=== PATIENT | male | born 1970 | race Caucasian/White ===

== ENCOUNTER 2021-07-21 10:10 | Inpatient (IN) | payer MEDICAID, SELFPAY ==
[~2021-07-21] VITALS: Ht 172.7 cm; Wt 136.1 kg
--- NOTE | 2021-07-21 10:12 | NUR ---
Pt JOHNA BLS to bed 05.
[2021-07-21 10:13] VITALS: BP 175/140
--- NOTE | 2021-07-21 10:13 | NUR ---
PATIENT PROVIDED WITH URINE CUP AT BEDSIDE.
--- NOTE | 2021-07-21 10:44 | NUR ---
PATIENT AMBULATED TO RESTROOM TO PROVIDE URINE SAMPLE AT THIS TIME.
--- NOTE | 2021-07-21 11:31 | NUR ---
Toi sesay in [facility] - 07/21/21 at [email or web address] RODGERS AT BEDSIDE EVALUATING PT
--- NOTE | 2021-07-21 11:31 | NUR ---
DR. RODGERS EVALUATING PATIENT AT BEDSIDE.
[2021-07-21] MEDS ORDERED: KETOROLAC 30 MG/ML VIAL IVP ONE (11:35)
[2021-07-21] MEDS ORDERED: NACL 0.9% 1,000 ML IV ONE (11:35)
--- NOTE | 2021-07-21 11:40 | NUR ---
PATIENT TAKEN TO CT VIA WHEELCHAIR
--- NOTE | 2021-07-21 11:52 | NUR ---
PATIENT ESCORTED BACK TO ROOM FROM CT
[2021-07-21 12:05] LABS: BASOPHILS # (AUTO) 0.1 K/uL (0.00-0.22); BASOPHILS % (AUTO) 0.6 % (0.0-2.0); EOSINOPHILS # (AUTO) 0.1 K/uL (0-0.4); EOSINOPHILS % (AUTO) 0.6 % (0.0-4.0); HEMATOCRIT 44.7 % (36-52); HEMOGLOBIN 14.8 g/dL (12.0-18.0); LYMPHOCYTES # (AUTO) 1.8 K/uL (2.0-11.5); LYMPHOCYTES % (AUTO) 18.9 % (20.5-51.1); MEAN CORPUSCULAR HEMOGLOBIN 26 pg (27-31); MEAN CORPUSCULAR HGB CONC 33 g/dL (33-37); MEAN CORPUSCULAR VOLUME 78.8 fL (80-94); MONOCYTES # (AUTO) 0.4 K/uL (0.8-1.0); MONOCYTES % (AUTO) 4.5 % (1.7-9.3); NEUTROPHILS # (AUTO) 7.2 K/uL (1.8-7.7); NEUTROPHILS % (AUTO) 75.4 % (42.2-75.2); PLATELET COUNT (AUTO) 215 K/uL (140-450); RED BLOOD CELL COUNT(AUTO) 5.67 MIL/uL (4.20-6.10); RED CELL DISTRIBUTION WIDTH 15.1 % (11.6-13.7); WHITE BLOOD COUNT (AUTO) 9.5 K/uL (4.8-10.8)
[2021-07-21 12:17] LABS: ALBUMIN 3.4 g/dL (3.4-5.0); ANION GAP 10.4 (8-16); CARBON DIOXIDE 30.2 mmol/L (21-32); CREATININE 0.8 mg/dL (0.6-1.3); POTASSIUM 3.6 mmol/L (3.5-5.1); TOTAL BILIRUBIN 0.4 mg/dL (0.0-1.0)
--- NOTE | 2021-07-21 13:00 | NUR ---
PATIENT RESTING IN BED, RESPIRATIONS EVEN AND UNLABORED. SAFETY PRECAUTIONS CONTINUE IN PLACE, WILL CONTINUE TO MONITOR.
[2021-07-21] MEDS ORDERED: ONDANSETRON 4 MG/2 ML VIAL IVP ONE (14:20)
[2021-07-21] MEDS ORDERED: MORPHINE SULFATE 4 MG/ML SYR IVP ONE (14:20)
[2021-07-21] MEDS ORDERED: cefTRIAXone 1,000 MG VIAL ONE (14:24)
[2021-07-21 14:26] LABS: APPEARANCE,URINE CLEAR (CLEAR); BILIRUBIN,URINE 1+ (NEGATIVE); BLOOD, URINE 1+ (NEGATIVE); COLOR,URINE YELLOW (YELLOW); LEUKOCYTE ESTERASE ,URINE NEGATIVE (NEGATIVE); NITRITE, URINE NEGATIVE (NEGATIVE); UGLUCOSE 3+ (NEGATIVE)
[2021-07-21 14:55] LABS: CALCIUM OXALATE CRYSTALS,UR >100 /HPF (None Seen); RBC,URINE 0-5 /HPF (0-5); WBC,URINE 0-5 /HPF (0-5)
[2021-07-21] MEDS: VANCOMYCIN 1,500 MG in NACL 0.9% 500 ML IV SCH (17:15)
--- NOTE | 2021-07-21 18:14 | NUR ---
PATIENT PROVIDED W/ DINNER TRAY AT BEDSIDE. ALL PATIENT NEEDS MET AT THIS TIME. WILL CONTINUE TO MONITOR.
--- NOTE | 2021-07-21 18:29 | NUR ---
PATIENT ATE 100% OF DINNER TRAY AT THIS TIME.
--- NOTE | 2021-07-21 19:18 | NUR ---
The patient's care was reviewed and supervised by Latisha Lim RN.
--- NOTE | 2021-07-21 19:21 | NUR ---
Pt report given to DIANNA MOODY. Transfer of care at this time.
--- NOTE | 2021-07-21 21:41 | NUR ---
EMPTIED 200 ML OF URINE.
--- NOTE | 2021-07-21 22:40 | NUR ---
Patient will be admitted to care of MICHELLE. Admited to MED SURG. Will go to room. Belongings list completed. Report to .
[2021-07-21 23:12] VITALS: BP 157/115
--- NOTE | 2021-07-21 23:27 | NUR ---
Admitted from ED VIA GURNEY with chief complaint of BACK PAIN X1 WEEK. PATIENT IS 50 y/o ,Male, Cooperative. ARRIVED TO [facility] AT 2240 ACCOMPANIED BY EMT SARAH. HEAD TO TOE ASSESSMENT COMPLETED WITH LUIS ALFREDO BUSTAMANTE. VS TAKEN. CONTACTED DR. MARTINEZ REGARDING BP OF 167/119 AND BLOOD SUGAR READING OF 242. DENIES PAIN. ON ROOM AIR WITH NO APPARENT S/SX OF ACUTE DISTRESS. RESPIRATIONS EVEN AND UNLABORED. PT'S IV SITE TO THE LAC 20G IS PATENT/INTACT SL. PATIENT IS AMBULATORY AND INCONTINENT. PATIENT STATES HE IS HOMELESS AND GOT KICKED OUT OF [facility] 2 WEEKS AGO. PATIENT STATES HE WAS DIAGNOSED WITH DM LAST YEAR BUT NONCOMPLIANT. MRSA SWAB COLLECTED. PATIENT IS oriented to call light, bed, phone,television, bathroom, smoking policy, visiting hours, procedures, ID bracelet on. Belongings list checked.
[2021-07-21] MEDS ORDERED: VANCOMYCIN 1,000 MG VIAL ONE (23:42)
--- NOTE | 2021-07-21 23:50 | NUR ---
PER DR. MARTINEZ, INSULIN SLIDING SCALE AND METOPROLOL 25MG BID WILL BE ORDERED.
[2021-07-21] MEDS ORDERED: DEXTROSE 50% 50 ML SYR IVP PRN (23:55)
[2021-07-21] MEDS ORDERED: METOPROLOL SUCCINATE 50 MG TABER PO PRN (23:55)
--- NOTE | 2021-07-22 00:01 | NUR ---
[facility] TO VERIFY DR. MARTINEZ'S ORDERS. MEGAN STATED SHE WILL LET MAIN PHARMACIST KNOW.
[2021-07-22] MEDS: VANCOMYCIN 1,500 MG in NACL 0.9% 500 ML IV SCH ×4 (00:14→23:21)
--- NOTE | 2021-07-22 00:15 | NUR ---
MEDICATED PT PER MD ORDER. TOLERATED WELL. BARRERAR. PROVIDED PT WITH 2X VANILLA PUDDING.
--- NOTE | 2021-07-22 01:49 | NUR ---
ANSWERED CALL LIGHT. PATIENT C/O 12/24 LOWER BACK PAIN. CONTACTED DR. MARTINEZ FOR PRN ORDER. WILL CONTINUE TO FOLLOW UP.
--- NOTE | 2021-07-22 01:50 | NUR ---
PER DR. MARTINEZ PAIN REGIMEN WILL BE ORDERED FOLLOWS: MORPHINE 2MG IV Q3 PRN SEVERE PAIN AND NORCO 5/325 Q6 PRN FOR MODERATE PAIN. WILL FOLLOW UP WITH PHARMACY.
--- NOTE | 2021-07-22 03:20 | NUR ---
PATIENT C/O 8/10 LOWER BACK PAIN. WILL ENDORSE TO LUIS ALFREDO BUSTAMANTE FOR IV PRN COVERAGE. RESPIRATIONS EVEN AND UNLABORED WITH NO APPARENT S/SX OF ACUTE DISTRESS. WHITE COMMUNICATION BOARD UPDATED. ALL SAFETY MEASURES IN PLACE. CALL LIGHT WITHIN REACH. WILL CONTINUE TO MONITOR.
--- NOTE | 2021-07-22 03:40 | NUR ---
bp 140/92 , pr 89 - c/o pain - will medicate
[2021-07-22] MEDS: MORPHINE SULFATE 2 MG/ML SYR IVP PRN ×2 (03:43→20:20)
[2021-07-22 04:00] VITALS: BP 143/89
[2021-07-22] MEDS: HYDROcodone/APAP 5/325 MG 1 TAB TAB PO PRN (05:38)
--- NOTE | 2021-07-22 05:40 | NUR ---
PT C/O 10/24 LOWER BACK PAIN. WILL MEDICATE PER PRN ORDER. RESPIRATIONS EVEN AND UNLABORED WITH NO APPARENT S/SX OF ACUTE DISTRESS. WHITE COMMUNICATION BOARD UPDATED. ALL SAFETY MEASURES IN PLACE. CALL LIGHT WITHIN REACH. WILL CONTINUE TO MONITOR.
[2021-07-22] MEDS: BLOOD GLUCOSE MONITORING 1 DEV DEV FS SCH ×4 (06:30→20:10)
[2021-07-22] MEDS: INSULIN LISPRO SLIDING SCALE 100 UNITS/ML VIAL SUBQ PRN ×4 (06:32→20:12)
--- NOTE | 2021-07-22 07:15 | NUR ---
ENDORSED PATIENT TO MARITZA WILKS FOR CONTINUITY OF CARE. PATIENT IS STABLE.
--- NOTE | 2021-07-22 07:16 | NUR ---
RECEIVED REPORT FROM JEWISH HISTORY PROFESSOR NURSE FOR CONTINUITY OF CARE. PT IS IN BED AT THIS TIME RESTING. RESPIRATIONS ARE EVEN AND UNLABORED ON ROOM AIR, NO SIGNS OF DISTRESS NOTED. PT IS A&OX4, ABLE TO VERBALIZE NEEDS TO STAFF. PT IS AMBULATORY, CONTINENT OF BOWEL AND BLADDER. PT ON REGULAR DIET AT THIS TIME, ABD IS NONTENDER, NONDISTENDED WITH BOWEL SOUNDS PRESENT. PT STATES LAST BOWEL MOVEMENT WAS YESTERDAY NIGHT. SKIN IS WARM, DRY, AND INTACT. PT HAS L AC 20G. IV IS INTACT AND PATENT. NO COMPLAINTS OF PAIN OR DISCOMFORT NOTED. CALL LIGHT WITHIN REACH. ALL SAFETY MEASURES IN PLACE. WILL CONTINUE TO MONITOR.
[2021-07-22 08:00] VITALS: BP 145/84
[2021-07-22] MEDS: VANCOMYCIN PER PHARMACY MC SCH (09:00)
[2021-07-22] MEDS: METOPROLOL SUCCINATE 50 MG TABER PO SCH ×2 (09:09→20:15)
--- NOTE | 2021-07-22 09:10 | NUR ---
ADMINISTERED ALL SCHEDULED MEDICATIONS. EDUCATED PT REGARDING MEDS ADMINISTERED. ANSWERED ALL QUESTIONS. PT TOLERATED WELL. WILL CONTINUE TO MONITOR.
[2021-07-22 09:33] LABS: BASOPHILS % (AUTO) 0.7 % (0.0-2.0); EOSINOPHILS # (AUTO) 0.1 K/uL (0-0.4); EOSINOPHILS % (AUTO) 1.4 % (0.0-4.0); HEMOGLOBIN 14.1 g/dL (12.0-18.0); LYMPHOCYTES # (AUTO) 1.8 K/uL (2.0-11.5); LYMPHOCYTES % (AUTO) 24.2 % (20.5-51.1); MEAN CORPUSCULAR HEMOGLOBIN 26 pg (27-31); MEAN CORPUSCULAR HGB CONC 33 g/dL (33-37); MEAN CORPUSCULAR VOLUME 78.5 fL (80-94); MONOCYTES # (AUTO) 0.4 K/uL (0.8-1.0); MONOCYTES % (AUTO) 4.9 % (1.7-9.3); NEUTROPHILS % (AUTO) 68.8 % (42.2-75.2); PLATELET COUNT (AUTO) 184 K/uL (140-450); RED BLOOD CELL COUNT(AUTO) 5.48 MIL/uL (4.20-6.10); RED CELL DISTRIBUTION WIDTH 15.1 % (11.6-13.7); WHITE BLOOD COUNT (AUTO) 7.3 K/uL (4.8-10.8)
[2021-07-22 10:01] LABS: ANION GAP 11.4 (8-16); CARBON DIOXIDE 29.5 mmol/L (21-32); CREATININE 0.8 mg/dL (0.6-1.3); POTASSIUM 3.9 mmol/L (3.5-5.1); TOTAL BILIRUBIN 0.5 mg/dL (0.0-1.0)
[2021-07-22] MEDS ORDERED: ZOLPIDEM 5 MG TAB PO PRN (10:10)
[2021-07-22] MEDS ORDERED: LORazepam 2 MG/ML VIAL IM/IVP PRN (10:10)
[2021-07-22] MEDS ORDERED: ONDANSETRON 4 MG/2 ML VIAL IM/IVP PRN (10:10)
[2021-07-22] MEDS ORDERED: ACETAMINOPHEN 325 MG TAB PO PRN (10:10)
[2021-07-22] MEDS ORDERED: POTASSIUM CHLORIDE 10 MEQ TABER PO PRN (10:10)
[2021-07-22] MEDS ORDERED: DOCUSATE SODIUM 100 MG GELCAP PO PRN (10:10)
[2021-07-22] MEDS: NACL 0.9% 1,000 ML IV SCH ×2 (10:29→18:32)
[2021-07-22 11:04] LABS: PROTHROMBIN TIME 9.9 secs (10.8-13.4)
[2021-07-22 11:18] LABS: CHOL/HDL RATIO 7.6 (1-4.5); THYROID STIMULATING HORMONE 2.07 uIU/mL (0.34-3.74)
--- NOTE | 2021-07-22 11:33 | NUR ---
PT BLOOD GLUCOSE WAS 265. COVERED WITH 4 UNITS INSULIN PER SLIDING SCALE. WILL CONTINUE TO MONITOR.
--- NOTE | 2021-07-22 12:00 | NUR ---
PATIENT HAS BEEN SCREENED AND CATEGORIZED MODERATE NUTRITION RISK. PATIENT WILL BE SEEN WITHIN 3-5 DAYS OF ADMISSION. NATIVID[address] BHAGAT RD Addendum: 07/23/21 at [address] REFERRAL RECEIVED FOR NEWLY DIAGNOSED DIABETIC NOT APPLICABLE
--- NOTE | 2021-07-22 13:15 | NUR ---
PT LEFT UNIT FOR NUCLEAR BONE SCAN. LEFT WITH TECH.
[2021-07-22 13:53] LABS: BARBITURATE, URINE NEGATIVE ng/ml (NEG <=200); BENZODIAZEPINE, URINE NEGATIVE ng/mL (NEG <=200); COCAINE, URINE NEGATIVE ng/mL (NEG <=300)
[2021-07-22 13:54] LABS: CANNABINOID, URINE POSITIVE ng/mL (NEG <=50); OPIATE, URINE POSITIVE ng/mL (NEG <=2000); PHENCYCLIDINE SCREEN,URINE NEGATIVE ng/mL (NEG <=25)
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
--- NOTE | 2021-07-22 16:30 | NUR ---
PT IV CONTINUES TO BEEP. SHOWS PRESSURE TOO HIGH. ATTEMPT TO FLUSH IV. UNSUCCESSFUL. WILL ATTEMPT NEW IV PLACEMENT.
--- NOTE | 2021-07-22 16:42 | NUR ---
NEW IV PLACED TO LFA, 20 G. PT TOLERATED WELL. WILL CONTINUE TO MONITOR.
--- NOTE | 2021-07-22 19:15 | NUR ---
ENDORSED PT TO BIBLE WORKER NURSE FOR CONTINUITY OF CARE. ALL NEEDS MET THROUGHOUT SHIFT. PT IS STABLE.
--- NOTE | 2021-07-22 19:16 | NUR ---
RECEIVED REPORT FROM MORNING SHIFT. PATIENT RESTING ON BED. BREATHING EVEN AND UNLABORED. IV FLUIDS ONGOING AT DESIRED RATE. NO COMPLAINTS OF PAIN. SAFETY MEASURES MAINTAINED.CALL LIGHT WITHIN REACH. WILL CONTINUE TO MONITOR AND ASSESS PATIENT.
[2021-07-22 20:00] VITALS: BP 149/95
[2021-07-23] MEDS: NACL 0.9% 1,000 ML IV SCH ×3 (02:50→21:23)
[2021-07-23 04:00] VITALS: BP 149/95
[2021-07-23 05:42] LABS: MAGNESIUM 1.7 mg/dL (1.8-2.4); PHOSPHORUS 3.2 mg/dL (2.5-4.9)
[2021-07-23 05:51] LABS: ANION GAP 11.5 (8-16); CARBON DIOXIDE 30.3 mmol/L (21-32); CREATININE 0.7 mg/dL (0.6-1.3); POTASSIUM 3.8 mmol/L (3.5-5.1)
[2021-07-23 06:10] LABS: BASOPHILS # (AUTO) 0.1 K/uL (0.00-0.22); BASOPHILS % (AUTO) 0.7 % (0.0-2.0); EOSINOPHILS # (AUTO) 0.1 K/uL (0-0.4); EOSINOPHILS % (AUTO) 1.1 % (0.0-4.0); HEMATOCRIT 41.7 % (36-52); LYMPHOCYTES # (AUTO) 2.1 K/uL (2.0-11.5); LYMPHOCYTES % (AUTO) 25.6 % (20.5-51.1); MEAN CORPUSCULAR HEMOGLOBIN 26 pg (27-31); MEAN CORPUSCULAR HGB CONC 34 g/dL (33-37); MEAN CORPUSCULAR VOLUME 77.7 fL (80-94); MONOCYTES # (AUTO) 0.4 K/uL (0.8-1.0); MONOCYTES % (AUTO) 4.7 % (1.7-9.3); NEUTROPHILS # (AUTO) 5.5 K/uL (1.8-7.7); NEUTROPHILS % (AUTO) 67.9 % (42.2-75.2); PLATELET COUNT (AUTO) 193 K/uL (140-450); RED BLOOD CELL COUNT(AUTO) 5.37 MIL/uL (4.20-6.10); RED CELL DISTRIBUTION WIDTH 15.1 % (11.6-13.7)
[2021-07-23] MEDS: BLOOD GLUCOSE MONITORING 1 DEV DEV FS SCH ×4 (06:33→21:23)
[2021-07-23] MEDS: INSULIN LISPRO SLIDING SCALE 100 UNITS/ML VIAL SUBQ PRN ×4 (06:34→21:27)
--- NOTE | 2021-07-23 07:23 | NUR ---
ENDORSED TO MORNING SHIFT RN FOR CONTINUITY OF CARE. PATIENT RESTING ON BED, STABLE.
--- NOTE | 2021-07-23 07:30 | NUR ---
RECEIVED PT FROM [facility] NOC SHIFT. PT IS AAOX4. RESP E/U. ON R/A. IVF NS 120ML/HOUR RUNNING TO [facility], PATENT, SITE WNL. DRESSING CDI. PT DENIES PAIN AT THIS TIME. CALL LIGHT WITHIN REACH.
[2021-07-23 08:08] LABS: T4 (THYROXINE) 7.3 ug/dL (4.5-12.0)
[2021-07-23] MEDS: VANCOMYCIN 1,500 MG in NACL 0.9% 500 ML IV SCH ×2 (08:33→15:51)
[2021-07-23] MEDS: METOPROLOL SUCCINATE 50 MG TABER PO SCH ×2 (08:34→21:19)
[2021-07-23] MEDS: VANCOMYCIN PER PHARMACY MC SCH (08:35)
[2021-07-23] MEDS: HYDROcodone/APAP 5/325 MG 1 TAB TAB PO PRN ×2 (08:49→21:22)
--- NOTE | 2021-07-23 08:56 | NUR ---
NORCO 5MG PO PRN GIVEN ORDERED FOR BILATERAL FLANK PAIN 10/24. PT REPOSITIONED FOR COMFORT. CALL LIGHT WITHIN REACH. SCHEDULED MEDS GIVEN AND TOLERATED WELL. B/P 148/75 HR 70.
[2021-07-23 12:00] VITALS: BP 135/93
--- NOTE | 2021-07-23 13:00 | NUR ---
BS 185, 2 UNITS NOVOLOG SQ GIVEN. PT SURVED LUNCH, DENIES PAIN A THIS TIME.
[2021-07-23 16:00] VITALS: BP 165/92
--- NOTE | 2021-07-23 16:00 | NUR ---
IV CATH TO LFA INFILTRATED, REMOVED INTACT, ARM ELEVATED ON PILLOW AND WARM COMPRESS APPLIED. SITE COVERED WITH GAUZE AND BANDAID, NO S/S OF INFECTION AT THIS TIME. NEW IV CATH 22G STARTED TO RFA ON FIRST ATTEMPT. SITE WNL, DRESSING APPLIED. PT TOLERATED PROCEDURE WELL, DENIES PAIN.
--- NOTE | 2021-07-23 19:35 | NUR ---
ENDORSED ALL CARE TO DIANNA ARAMBULA. ALL QUESTIONS ADDRESSED.
--- NOTE | 2021-07-23 19:36 | NUR ---
RECEIVED REPORT FROM MORNING NURSE. PATIENT RESTING ON BED, BREATHING EVEN AND UNLABORED. IV FLUIDS ONGOING AT DESIRED RATE. NO PAIN COMPLAINTS. WILL CONTINUE TO MONITOR AND ASSESS PATIENT.
[2021-07-23 20:00] VITALS: BP 149/102
[2021-07-23] MEDS ORDERED: INSULIN LANTUS 100 UNITS/ML 10 ML VIAL SUBQ SCH (21:00)
[2021-07-24 04:00] VITALS: BP 149/100
[2021-07-24] MEDS: NACL 0.9% 1,000 ML IV SCH ×3 (05:06→20:56)
[2021-07-24 06:05] LABS: BASOPHILS % (AUTO) 0.6 % (0.0-2.0); EOSINOPHILS # (AUTO) 0.1 K/uL (0-0.4); EOSINOPHILS % (AUTO) 1.1 % (0.0-4.0); HEMATOCRIT 42.2 % (36-52); HEMOGLOBIN 13.9 g/dL (12.0-18.0); LYMPHOCYTES # (AUTO) 2.1 K/uL (2.0-11.5); MEAN CORPUSCULAR HEMOGLOBIN 26 pg (27-31); MEAN CORPUSCULAR HGB CONC 33 g/dL (33-37); MEAN CORPUSCULAR VOLUME 78.9 fL (80-94); MONOCYTES # (AUTO) 0.4 K/uL (0.8-1.0); MONOCYTES % (AUTO) 4.8 % (1.7-9.3); NEUTROPHILS # (AUTO) 5.7 K/uL (1.8-7.7); NEUTROPHILS % (AUTO) 68.5 % (42.2-75.2); PLATELET COUNT (AUTO) 183 K/uL (140-450); RED BLOOD CELL COUNT(AUTO) 5.35 MIL/uL (4.20-6.10); RED CELL DISTRIBUTION WIDTH 14.8 % (11.6-13.7); WHITE BLOOD COUNT (AUTO) 8.3 K/uL (4.8-10.8)
[2021-07-24 06:07] LABS: ANION GAP 11.8 (8-16); CREATININE 0.7 mg/dL (0.6-1.3); POTASSIUM 3.8 mmol/L (3.5-5.1)
[2021-07-24 06:09] LABS: MAGNESIUM 1.7 mg/dL (1.8-2.4); PHOSPHORUS 3.1 mg/dL (2.5-4.9)
[2021-07-24] MEDS: BLOOD GLUCOSE MONITORING 1 DEV DEV FS SCH ×4 (06:48→20:39)
[2021-07-24] MEDS: INSULIN LISPRO SLIDING SCALE 100 UNITS/ML VIAL SUBQ PRN ×3 (06:49→20:40)
--- NOTE | 2021-07-24 07:30 | NUR ---
RECEIVED REPORT FROM DINING ROOM COORDINATOR NURSE.
[2021-07-24] MEDS: VANCOMYCIN 1,500 MG in NACL 0.9% 500 ML IV SCH ×4 (08:55→16:13)
[2021-07-24] MEDS: HYDROcodone/APAP 5/325 MG 1 TAB TAB PO PRN ×2 (09:15→20:49)
[2021-07-24] MEDS: METOPROLOL SUCCINATE 50 MG TABER PO SCH ×2 (09:16→20:37)
[2021-07-24] MEDS: MAG SULF 2000 MG/WATER PREMIX 50 ML IV PRN (09:21)
[2021-07-24] MEDS: VANCOMYCIN PER PHARMACY MC SCH (09:33)
--- NOTE | 2021-07-24 09:42 | NUR ---
PT COMPLAINED OF BACK PAIN 10/24. PT REPOSITIONED SELF AND TAUGHT BREATHING EXERCISES. PT MEDICATED FOR PAIN PER MD ORDER. PT VERBALIZED UNDERSTANDING OF EDUCATION. CALL LIGHT IN REACH. ALL SAFETY MEASURES IN PLACE
[2021-07-24 12:00] VITALS: BP 149/98
--- NOTE | 2021-07-24 12:19 | NUR ---
PT BS 189, POST MEAL NO COVERAGE GIVEN. WILL CONTINUE TO MONITOR.
--- NOTE | 2021-07-24 17:43 | NUR ---
BG 169, COVERED PT 2UN. PT TOLERATED WELL. CALL LIGHT IN REACH. ALL SAFETY MEASURES IN PLACE
--- NOTE | 2021-07-24 19:23 | NUR ---
ENDORSED PT TO ROCK MASON APPRENTICE NURSE
--- NOTE | 2021-07-24 19:30 | NUR ---
RECEIVED BEDSIDE REPORT FROM DAY SHIFT RN FOR CONTINUITY OF CARE. PT IS AWAKE IN BED. PT IS ON RA. PT IS NOT IN ANY DISTRESS. BREATHING RHYTHMIC AND UNLABORED. CALL LIGHT WITHIN REACH. ALL SAFETY MEASURES TAKEN. WILL CONTINUE TO MONITOR THE PT.
[2021-07-24 20:00] VITALS: BP 151/87
[2021-07-24] MEDS: INSULIN LANTUS 100 UNITS/ML 10 ML VIAL SUBQ SCH (20:40)
--- NOTE | 2021-07-24 20:45 | NUR ---
ALL DUE MEDS GIVEN. NO ADVERSE REACTION NOTED. WILL CONTINUE TO MONITOR THE PT.
--- NOTE | 2021-07-24 23:07 | NUR ---
PT IS AWAKE IN BED WATCHING TELEVISION. PT IS NOT IN ANY DISTRESS. BREATHING RHYTHMIC AND UNLABORED. IVF RUNNING PER MD ORDER. CALL LIGHT WITHIN REACH. ALL SAFETY MEASURES TAKEN. WILL CONTINUE TO MONITOR THE PT.
[2021-07-25] MEDS: VANCOMYCIN 1,500 MG in NACL 0.9% 500 ML IV SCH ×2 (00:26→08:17)
--- NOTE | 2021-07-25 00:30 | NUR ---
ALL DUE MEDS GIVEN. NO ADVERSE REACTION NOTED. WILL CONTINUE TO MONITOR THE PT.
--- NOTE | 2021-07-25 03:33 | NUR ---
PT IS SLEEPING IN BED COMFORTABLY. PT IS NOT IN ANY DISTRESS. BREATHING RHYTHMIC AND UNLABORED. IVF RUNNING PER MD ORDER. CALL LIGHT WITHIN REACH. ALL SAFETY MEASURES TAKEN. WILL CONTINUE TO MONITOR THE PT.
[2021-07-25 04:00] VITALS: BP 156/103
[2021-07-25] MEDS: HYDROcodone/APAP 5/325 MG 1 TAB TAB PO PRN ×2 (04:29→20:59)
[2021-07-25] MEDS: NACL 0.9% 1,000 ML IV SCH ×3 (04:50→21:30)
[2021-07-25 05:54] LABS: BASOPHILS # (AUTO) 0.1 K/uL (0.00-0.22); BASOPHILS % (AUTO) 0.7 % (0.0-2.0); EOSINOPHILS # (AUTO) 0.1 K/uL (0-0.4); EOSINOPHILS % (AUTO) 1.2 % (0.0-4.0); HEMATOCRIT 41.4 % (36-52); HEMOGLOBIN 13.8 g/dL (12.0-18.0); LYMPHOCYTES # (AUTO) 2.2 K/uL (2.0-11.5); LYMPHOCYTES % (AUTO) 25.2 % (20.5-51.1); MEAN CORPUSCULAR HEMOGLOBIN 26 pg (27-31); MEAN CORPUSCULAR HGB CONC 33 g/dL (33-37); MEAN CORPUSCULAR VOLUME 78.1 fL (80-94); MONOCYTES # (AUTO) 0.5 K/uL (0.8-1.0); MONOCYTES % (AUTO) 5.3 % (1.7-9.3); NEUTROPHILS # (AUTO) 5.9 K/uL (1.8-7.7); NEUTROPHILS % (AUTO) 67.6 % (42.2-75.2); PLATELET COUNT (AUTO) 191 K/uL (140-450); RED BLOOD CELL COUNT(AUTO) 5.31 MIL/uL (4.20-6.10); RED CELL DISTRIBUTION WIDTH 15.1 % (11.6-13.7); WHITE BLOOD COUNT (AUTO) 8.7 K/uL (4.8-10.8)
[2021-07-25 05:55] LABS: ANION GAP 9.9 (8-16); CARBON DIOXIDE 30.5 mmol/L (21-32); CREATININE 0.7 mg/dL (0.6-1.3); POTASSIUM 4.4 mmol/L (3.5-5.1)
[2021-07-25 06:02] LABS: MAGNESIUM 1.7 mg/dL (1.8-2.4); PHOSPHORUS 3.7 mg/dL (2.5-4.9)
--- NOTE | 2021-07-25 07:20 | NUR ---
ENDORSED PT TO DAY SHIFT RN FOR CONTINUITY OF CARE. PT IS STABLE.
[2021-07-25] MEDS: BLOOD GLUCOSE MONITORING 1 DEV DEV FS SCH ×4 (07:58→20:47)
[2021-07-25] MEDS: METOPROLOL SUCCINATE 50 MG TABER PO SCH ×2 (08:18→20:49)
[2021-07-25] MEDS: VANCOMYCIN PER PHARMACY MC SCH (08:19)
[2021-07-25] MEDS ORDERED: lisinopriL 10 MG TAB PO SCH (09:15)
[2021-07-25] MEDS: MAG SULF 2000 MG/WATER PREMIX 50 ML IV PRN (10:48)
--- NOTE | 2021-07-25 10:59 | NUR ---
SPOKE WITH MD, MRI UNAVAILABLE UNTIL WEDNESDAY. NEW MED ORDER HELD PER MD, BP MEDS GIVEN WITH MORNING ADMINISTRATION. BP DECREASED, NO S/S OF DISTRESS. CALL LIGHT IN REACH. ALL SAFETY MEASURES IN PLACE
[2021-07-25] MEDS: INSULIN LISPRO SLIDING SCALE 100 UNITS/ML VIAL SUBQ PRN ×2 (11:28→20:48)
[2021-07-25 12:00] VITALS: BP 152/109
--- NOTE | 2021-07-25 12:20 | NUR ---
07/25/21 RD INITIAL ASSESSMENT COMPLETED PLEASE REFER TO NUTRITION ASSESSMENT UNDER CARE ACTIVITY FOR ESTIMATED NUTRITIONAL NEEDS. 1. CONTINUE [facility] 45 GM DIET TOLERATED 2. MONITOR BLOOD GLUCOSE LEVELS 3. RD TO FOLLOW-UP 7 DAYS, LOW RISK (DOWNGRADED D/T PT BLOOD SUGAR UNDER CONTROL) CASSY BHAGAT RD
--- NOTE | 2021-07-25 13:09 | NUR ---
UPDATED PT ALLERGIES. PT RECEIVED FISH FROM DIETARY, PT IS ALLERGIC. NEW TRAY ORDERED. PT STABLE. NO S/S OF DISTRESS. CALL LIGHT IN REACH. ALL SAFETY MEASURES IN PLACE
--- NOTE | 2021-07-25 17:18 | NUR ---
VANCO TROUGH 20.4, VANCO HELD PER PHARMACY. WILL RESTART TOMORRROW AFTER TROUGH IS REDREW
--- NOTE | 2021-07-25 19:20 | NUR ---
ENDORSED PT TO SOFTWARE DEVELOPER INTERN NURSE
--- NOTE | 2021-07-25 19:30 | NUR ---
RECEIVED BEDSIDE REPORT FROM DAY SHIFT RN FOR CONTINUITY OF CARE. PT IS AWAKE IN BED. PT IS ON RA. NOT IN ANY DISTRESS. BREATHING RHYTHMIC AND UNLABORED. IVF RUNNING PER MD ORDER. CALL LIGHT WITHIN REACH. BED AT THE LOWEST POSITION. HEAD OF BED RAISED. ALL SAFETY MEASURES TAKEN. WILL CONTINUE TO MONITOR THE PT.
[2021-07-25 20:00] VITALS: BP 140/95
[2021-07-25] MEDS: INSULIN LANTUS 100 UNITS/ML 10 ML VIAL SUBQ SCH (20:48)
--- NOTE | 2021-07-25 20:50 | NUR ---
ALL DUE MEDS GIVEN. NO ADVERSE REACTION NOTED. WILL CONTINUE TO MONITOR THE PT.
--- NOTE | 2021-07-25 23:15 | NUR ---
PT IS AWAKE. PT IS NOT IN ANY ACUTE DISTRESS. BREATHING RHYTHMIC AND UNLABORED. IVF RUNNING PER MD ORDER. CALL LIGHT WITHIN REACH. ALL SAFETY MEASURES TAKEN. WILL CONTINUE TO MONITOR THE PT.
[2021-07-26] MEDS: VANCOMYCIN HCL 1.25 GM in DEXTROSE 5% 250 ML IV SCH ×3 (01:14→17:50)
--- NOTE | 2021-07-26 01:23 | NUR ---
ALL DUE MEDS GIVEN. NO ADVERSE REACTION NOTED. WILL CONTINUE TO MONITOR THE PT.
[2021-07-26] MEDS: NACL 0.9% 1,000 ML IV SCH ×3 (01:25→22:00)
[2021-07-26] MEDS: HYDROcodone/APAP 5/325 MG 1 TAB TAB PO PRN ×2 (03:05→22:05)
[2021-07-26 04:00] VITALS: BP 121/71
[2021-07-26] MEDS: BLOOD GLUCOSE MONITORING 1 DEV DEV FS SCH ×4 (06:06→20:28)
[2021-07-26 06:41] LABS: BASOPHILS # (AUTO) 0.1 K/uL (0.00-0.22); BASOPHILS % (AUTO) 0.7 % (0.0-2.0); EOSINOPHILS # (AUTO) 0.1 K/uL (0-0.4); EOSINOPHILS % (AUTO) 1.3 % (0.0-4.0); HEMATOCRIT 41.7 % (36-52); HEMOGLOBIN 13.6 g/dL (12.0-18.0); LYMPHOCYTES % (AUTO) 24.7 % (20.5-51.1); MEAN CORPUSCULAR HEMOGLOBIN 26 pg (27-31); MEAN CORPUSCULAR HGB CONC 33 g/dL (33-37); MEAN CORPUSCULAR VOLUME 78.8 fL (80-94); MONOCYTES # (AUTO) 0.3 K/uL (0.8-1.0); MONOCYTES % (AUTO) 4.2 % (1.7-9.3); NEUTROPHILS # (AUTO) 5.6 K/uL (1.8-7.7); NEUTROPHILS % (AUTO) 69.1 % (42.2-75.2); PLATELET COUNT (AUTO) 186 K/uL (140-450); RED BLOOD CELL COUNT(AUTO) 5.29 MIL/uL (4.20-6.10); RED CELL DISTRIBUTION WIDTH 14.7 % (11.6-13.7)
[2021-07-26 06:50] LABS: ANION GAP 10.9 (8-16); CARBON DIOXIDE 28.1 mmol/L (21-32); CREATININE 0.7 mg/dL (0.6-1.3)
[2021-07-26 06:53] LABS: MAGNESIUM 1.9 mg/dL (1.8-2.4); PHOSPHORUS 4.3 mg/dL (2.5-4.9)
--- NOTE | 2021-07-26 07:27 | NUR ---
ENDORSED PT TO DAY SHIFT RN FOR CONTINUITY OF CARE. PT IS STABLE.
--- NOTE | 2021-07-26 07:28 | NUR ---
RECEIVED REPORT FROM [employer] FIELD SUPERVISOR NURSE FOR CONTINUITY OF CARE. PT IS SLEEPING AT THIS TIME. RESPIRATIONS ARE EVEN AND UNLABORED, ON ROOM AIR. NO SIGNS OF SOB OR DISTRESS NOTED. PT IS A&OX4. ABLE TO VERBALIZE NEEDS TO STAFF. PT IS ON CCHO DIET. ABD IS NONTENDER, NONDISTENDED WITH BOWEL SOUNDS NOTED. PT HAS IV TO L HAND 22G, WITH FLUIDS INFUSING. SKIN IS WARM, DRY, AND INTACT. CALL LIGHT WITHIN REACH. ALL SAFETY MEASURES IN PLACE. WILL CONTINUE TO MONITOR.
[2021-07-26 08:00] VITALS: BP 106/58
[2021-07-26] MEDS: lisinopriL 5 MG TAB PO SCH (09:00)
[2021-07-26] MEDS: VANCOMYCIN PER PHARMACY MC SCH (09:00)
[2021-07-26] MEDS: METOPROLOL SUCCINATE 50 MG TABER PO SCH ×2 (09:05→20:12)
--- NOTE | 2021-07-26 09:06 | NUR ---
ADMINISTERED SCHEDULED MEDICATIONS. HELD ONE BP MEDICATION DUE TO PT BP. EDUCATED PT REGARDING MEDS ADMINISTERED. PT VERBALIZED UNDERSTANDING. WILL CONTINUE TO MONITOR.
[2021-07-26] MEDS: INSULIN LISPRO SLIDING SCALE 100 UNITS/ML VIAL SUBQ PRN ×3 (11:30→20:32)
--- NOTE | 2021-07-26 11:34 | NUR ---
PT BLOOD GLUCOSE WAS 223. COVERED WITH 4 UNITS INSULIN PER SLIDING SCALE. WILL CONTINUE TO MONITOR.
--- NOTE | 2021-07-26 14:09 | NUR ---
DID ROUNDS ON PT. PT RESTING AT THIS TIME. RESPIRATIONS ARE EVEN AND UNLABORED ON ROOM AIR. NO SIGNS OF DISTRESS NOTED. NO COMPLAINTS OF PAIN OR DISCOMFORT. CALL LIGHT WITHIN REACH. ALL SAFETY MEASURES IN PLACE. WILL CONTINUE TO MONITOR.
[2021-07-26 16:00] VITALS: BP 140/89
--- NOTE | 2021-07-26 17:20 | NUR ---
PT BLOOD GLUCOSE WAS 189. COVERED WITH 2 UNITS INSULIN PER SLIDING SCALE. WILL CONTINUE TO MONITOR.
--- NOTE | 2021-07-26 19:06 | NUR ---
ENDORSED PT TO ACCOUNTANT CONTROLLER NURSE FOR CONTINUITY OF CARE. ALL NEEDS MET THROUGHOUT SHIFT. PT IS STABLE.
--- NOTE | 2021-07-26 19:10 | NUR ---
RECEIVED PT REPORT FROM AM NURSE . POC DISCUSSED FOR CONTINUITY OF CARE. PT A&OX4 . AMBULATES. NAD ALL SAFETY MEASURES IN PLACE. CALL LIGHT WITHIN REACH.
[2021-07-26] MEDS ORDERED: CRUSHER, PILL MC ONE (20:16)
[2021-07-26] MEDS: INSULIN LANTUS 100 UNITS/ML 10 ML VIAL SUBQ SCH (20:31)
--- NOTE | 2021-07-26 21:00 | NUR ---
HS MEDS TAKEN WITHOUT DIFFICULTY. BS= 168 RECEIVED SCHEDULED LANTUS INSULIN 16 UNITS AND 2 UNITS OF HUMALOG INSULIN PER SLIDING SCALE. SNACK SUGAR FREE JELLO CONSUMED.
--- NOTE | 2021-07-26 22:15 | NUR ---
PT HAD A LARGE BM IN BATHROOM.
--- NOTE | 2021-07-26 23:00 | NUR ---
REASSESSED PAIN . NORCO EFFECTIVE PT SNORING RR EVEN AND UNLABORED WITH EQUAL CHEST RISE. CALL LIGHT WITHIN REACH. CONTINUE TO MONITOR.
--- NOTE | 2021-07-26 23:05 | NUR ---
C/O 01/24 LOW BACK PAIN NORCO 5/ GIVEN PER REQUEST. ALSO 1 SUGAR FREE FREDDY. Addendum: 07/27/21 at 0008 by Berna Thurston RN TIME PAIN MED GIVEN WAS 2205 NOT 2305
[2021-07-27] VITALS: BP 140/95
[2021-07-27] MEDS: VANCOMYCIN HCL 1.25 GM in DEXTROSE 5% 250 ML IV SCH (00:11)
--- NOTE | 2021-07-27 02:00 | NUR ---
SNACK SUGAR FREE JELLO GIVEN PER REQUEST. VOIDING PER URINAL- LARGE AMOUNTS. GOWN CHANGED PER PT REQUEST. CONTINU TO MONITOR.
--- NOTE | 2021-07-27 04:00 | NUR ---
PT ASKING FOR SNACKS. 2 PKGS QIANA CRACKERS AND MILK GIVEN. REINFORCED NO MORE SNACK TIL BREAKFAST AT O7:30 AM
[2021-07-27] MEDS: INSULIN LISPRO SLIDING SCALE 100 UNITS/ML VIAL SUBQ PRN ×2 (06:24→11:25)
[2021-07-27] MEDS: BLOOD GLUCOSE MONITORING 1 DEV DEV FS SCH ×3 (06:24→16:43)
[2021-07-27] MEDS: NACL 0.9% 1,000 ML IV SCH ×2 (07:00→15:12)
--- NOTE | 2021-07-27 07:00 | NUR ---
ENDORSED REPORT TO AM NURSE . BS= 162 COVERED WITH 2 UNITS OF HUMALOG INSULIN PER SLIDING SCALE. PT STABLE ALL NEEDS ATTENDED TO THIS SHIFT.
--- NOTE | 2021-07-27 07:26 | NUR ---
RECEIVED REPORT FROM BUSINESS ANALYTICS ANALYST NURSE FOR CONTINUITY OF CARE. PT IN BED SLEEPING AT THIS TIME. RESPIRATIONS ARE EVEN AND UNLABORED ON ROOM AIR. NO SIGNS OF DISTRESS NOTED. NO COMPLAINTS OF PAIN OR DISCOMFORT NOTED. CALL LIGHT WITHIN REACH. ALL SAFETY MEASURES IN PLACE. WILL CONTINUE TO MONITOR.
[2021-07-27 08:00] VITALS: BP 140/89
[2021-07-27 08:42] LABS: BASOPHILS % (AUTO) 0.6 % (0.0-2.0); EOSINOPHILS # (AUTO) 0.1 K/uL (0-0.4); EOSINOPHILS % (AUTO) 1.5 % (0.0-4.0); HEMATOCRIT 41.7 % (36-52); HEMOGLOBIN 13.6 g/dL (12.0-18.0); LYMPHOCYTES # (AUTO) 2.1 K/uL (2.0-11.5); LYMPHOCYTES % (AUTO) 25.7 % (20.5-51.1); MEAN CORPUSCULAR HEMOGLOBIN 26 pg (27-31); MEAN CORPUSCULAR HGB CONC 33 g/dL (33-37); MEAN CORPUSCULAR VOLUME 79.1 fL (80-94); MONOCYTES # (AUTO) 0.4 K/uL (0.8-1.0); MONOCYTES % (AUTO) 4.9 % (1.7-9.3); NEUTROPHILS # (AUTO) 5.5 K/uL (1.8-7.7); NEUTROPHILS % (AUTO) 67.3 % (42.2-75.2); PLATELET COUNT (AUTO) 183 K/uL (140-450); RED BLOOD CELL COUNT(AUTO) 5.27 MIL/uL (4.20-6.10); RED CELL DISTRIBUTION WIDTH 15.1 % (11.6-13.7); WHITE BLOOD COUNT (AUTO) 8.1 K/uL (4.8-10.8)
[2021-07-27] MEDS: VANCOMYCIN PER PHARMACY MC SCH (09:00)
[2021-07-27 09:06] LABS: ANION GAP 12.9 (8-16); CARBON DIOXIDE 26.3 mmol/L (21-32); CREATININE 0.7 mg/dL (0.6-1.3); POTASSIUM 4.2 mmol/L (3.5-5.1)
--- NOTE | 2021-07-27 09:16 | NUR ---
LAB CALLED TO REPORT VANCOMYCIN TROUGH IS 20.8, WILL CONTINUE TO MONITOR.
--- NOTE | 2021-07-27 09:17 | NUR ---
IV ANTIBIOTIC ADMINISTERED BY DIANNA BARRY. WILL CONTINUE TO MONITOR.
[2021-07-27] MEDS: METOPROLOL SUCCINATE 50 MG TABER PO SCH (09:20)
[2021-07-27] MEDS: lisinopriL 5 MG TAB PO SCH (09:20)
--- NOTE | 2021-07-27 09:22 | NUR ---
ADMINISTERED ALL SCHEDULED MEDICATIONS. EDUCATED PT REGARDING MEDS ADMINISTERED. PT VERBALIZED UNDERSTANDING. CALL LIGHT WITHIN REACH. ALL SAFETY MEASURES IN PLACE. WILL CONTINUE TO MONITOR.
[2021-07-27 09:43] LABS: MAGNESIUM 1.8 mg/dL (1.8-2.4); PHOSPHORUS 4.5 mg/dL (2.5-4.9)
--- NOTE | 2021-07-27 09:52 | NUR ---
PER PHARMACY, HOLD 0900 AM DOSE OF VANCOMYCIN. VANCO TROUGH WAS 20.8, RN MADE AWARE. WILL CONTINUE TO MONITOR.
--- NOTE | 2021-07-27 11:29 | NUR ---
PT BLOOD GLUCOSE WAS 220. COVERED WITH 4 UNITS INSULIN PER SLIDING SCALE. WILL CONTINUE TO MONITOR.
--- NOTE | 2021-07-27 14:29 | NUR ---
DID ROUNDS ON PT. PT IN BED, FAMILY AT BEDSIDE. NO COMPLAINTS OF PAIN OR DISCOMFORT. NO SIGNS OF DISTRESS NOTED. WILL CONTINUE TO MONITOR.
[2021-07-27 16:00] VITALS: BP 137/82
--- NOTE | 2021-07-27 16:50 | NUR ---
PT GLUCOSE WAS 132. NO INSULIN COVERAGE NEEDED PER SLIDING SCALE. FAMILY AT BEDSIDE. WILL CONTINUE TO MONITOR.
--- NOTE | 2021-07-27 17:28 | NUR ---
SCHEDULED MEDICATIONS DUE GIVEN. WILL CONTINUE TO MONITOR.
[2021-07-27] MEDS ORDERED: VANCOMYCIN 1,500 MG in DEXTROSE 5% 500 ML IV SCH (18:00)
[2021-07-27] MEDS: HYDROcodone/APAP 5/325 MG 1 TAB TAB PO PRN (18:05)
--- NOTE | 2021-07-27 18:48 | NUR ---
PT STATING HE WANTS TO LEAVE AGAINST MEDICAL ADVISE. INFORMED PT REGARDING THE DANGERS OF GOING AMA. PT STATES "I DONT CARE, I WANNA LEAVE. I WANNA BE WITH MY ". ATTEMPTED TO SPEAK TO PATIENT TO PURSUADE PT TO STAY. PT STATES "I WANNA LEAVE. SO TAKE OFF THIS IV OR IM GOING TO RIP IT OFF". INFORMED DR PHILLIPS. WILL GO OVER PAPERWORK WITH PT.
--- NOTE | 2021-07-27 18:59 | NUR ---
PT BEGAN PULLING AT LINES. STATED "IM SICK OF THIS PLACE I WANNA BE WITH MY ". REMOVED IV. IV CATHETER INTACT. REMOVED WRIST BAND. PT SIGNED AMA FORM. ALL BELONGINGS TAKEN UPON DISCHARGE. PT AND LEFT UNIT.
== END 2021-07-27 19:04 | disposition left against medical advice (07) | DRG 347 ==
LOC: MED 10:10 → MTU 15:23 → MMU 15:23
DX: M46.40 Discitis, unspecified, site unspecified (principal); E87.2 Acidosis; E44.0 Moderate protein-calorie malnutrition; E11.69 Type 2 diabetes mellitus with other specified complication; N12 Tubulo-interstitial nephritis, not specified as acute or chronic; R16.0 Hepatomegaly, not elsewhere classified; M46.26 Osteomyelitis of vertebra, lumbar region; E86.0 Dehydration; E66.9 Obesity, unspecified; Z53.29 Procedure and treatment not carried out because of patient's decision for other reasons; M19.90 Unspecified osteoarthritis, unspecified site; N40.0 Benign prostatic hyperplasia without lower urinary tract symptoms; Z20.822 Contact with and (suspected) exposure to COVID-19; F15.90 Other stimulant use, unspecified, uncomplicated; F12.90 Cannabis use, unspecified, uncomplicated; E11.65 Type 2 diabetes mellitus with hyperglycemia; E78.5 Hyperlipidemia, unspecified; F17.210 Nicotine dependence, cigarettes, uncomplicated; Z71.51 Drug abuse counseling and surveillance of drug abuser; Z68.42 Body mass index [BMI] 45.0-49.9, adult; Z59.00 Homelessness unspecified
CPT/HCPCS: 36415; 78315; 80048; 80053; 80202; 80305; 81001; 82150; 82948; 83036; 83605; 83690; 83735; 83880; 84100; 84134; 84436; 84443; 85025; 85610; 85651; 85730; 86140; 87040; 87081; 87086; 96361; 96365; 96375; 97112; 97116; 97163-GP; 97530; 99285; A9503; J0696; J1644; J1815; J1885; J2270; J2405; J3370; J3475; J7030; J7060